=== PATIENT | female | born 1970 | race Hispanic/Latino ===

== ENCOUNTER 2019-01-22 09:17 | Emergency (ER) | payer SELFPAY ==
[2019-01-22] MEDS ORDERED: MORPHINE 4 MG/ML SYR ONE (10:07)
[2019-01-22] MEDS ORDERED: ONDANSETRON 4 MG/2 ML VIAL ONE (10:08)
[2019-01-22 10:55] LABS: Absolute Lymphocytes (CBC) 3.4 K/uL (0.7-4.9); Basophils % 1.3 % (0-1.3); Hematocrit 43.5 % (36.0-45.0); Lymphocytes % 24.7 % (15.3-44.8); MPV 9.8 fL (7.6-11.3); RBC Red Blood Cell Count 4.82 M/uL (3.86-4.86)
--- NOTE | 2019-01-22 11:22 | RAD REPORT ---
EXAM DESCRIPTION: CTAbdomen Pelvis W Contrast - 01/22/2019 11:10 am CLINICAL HISTORY: Abdominal pain. flank pain, abdominal pain COMPARISON: Abdomen Pelvis W Contrast dated 02/04/2017 TECHNIQUE: Biphasic CT imaging of the abdomen and pelvis was performed with 100 ml non-ionic IV cont rast. All CT scans are performed using dose optimization technique as appropriate and may include automated exposure control or mA/KV adjustment according to patient size. FINDINGS: The lung bases are clear. The liver demonstrates diffuse fatty infiltration. The spleen, pancreas, adrenal glands and kidneys a re within normal limits. No bowel obstruction, free air, free fluid or abscess. The appendix is normal. No evidence of signi ficant lymphadenopathy. No suspicious bony findings. 3.8 cm left ovarian cyst noted. Soft tissue is seen in the endometrial canal. IMPRESSION: No acute intra-abdominal or pelvic finding. Fatty liver. 3.8 cm left ovarian cyst. Moderate fluid and soft tissue density in the endometrial canal, similar to study. Pap smear correlat ion is advised.
[2019-01-22 11:23] LABS: Bilirubin Total 0.7 mg/dL (0.2-1.0)
[2019-01-22 11:39] LABS: Urine Blood NEGATIVE (NEG); Urine Glucose 2+ (NEG); Urine Protein NEGATIVE (NEG); Urine pH 5.5 (5.0-7.0)
[2019-01-22 11:52] LABS: Lipase 22 U/L (73-393)
[2019-01-22 11:54] LABS: Bicarbonate 23 mmol/L (21-32); Sodium Level 132 mmol/L (136-145)
[2019-01-22 12:00] LABS: Alkaline Phosphatase 121 U/L (45-117)
[2019-01-22 12:01] LABS: Glucose Level 328 mg/dL (74-106); Protein, Total 7.4 g/dL (6.4-8.2)
[2019-01-22 12:17] LABS: BUN Blood Urea Nitrogen 8 mg/dL (7-18); Bilirubin Direct < 0.1 mg/dL (0-0.2); Potassium 3.4 mmol/L (3.5-5.1)
[2019-01-22 12:18] LABS: AST/SGOT 52 U/L (15-37)
[2019-01-22 12:19] LABS: ALT/SGPT 21 U/L (12-78)
[2019-01-22 12:20] LABS: Albumin 3.2 g/dL (3.4-5.0)
[2019-01-22] MEDS ORDERED: KETOROLAC 30 MG/ML INJ ONE (12:53)
[2019-01-22] MEDS ORDERED: FENTANYL CITR 100 MCG/2 ML ONE (12:53)
[2019-01-22 12:57] LABS: Urine Bacteria >50 /HPF (<20); Urine Culture Reflex Order REFLEXED; Urine RBC <5 /HPF (NONE SEEN)
[2019-01-22 13:09] LABS: Blood Morphology Comment NOT SEEN (NOT SEEN); Platelet Estimate ADEQ
[2019-01-22] MEDS ORDERED: CEFTRIAXONE/SWI 1gm 1 GM/10 ML SYR ONE (13:22)
--- NOTE | 2019-01-22 13:47 | EDPHYS ---
Physician Documentation [facility] Noel Name: Liliane Jane Age: 48 yrs Sex: Female : 1970 Arrival Date: 01/22/2019 Time: 09:19 Bed 19 Private MD: ED Physician Bhaskar Thomas HPI: 01/22 09:42 This 48 yrs old Female presents to ER via Ambulatory with complaints of Flank jmm Pain, Abdominal Pain. 09:42 The patient complains of pain in the left flank and right flank. Onset: The jmm symptoms/episode began/occurred gradually, 1 month(s) ago. Modifying factors: The symptoms are alleviated by nothing. the symptoms are aggravated by nothing. Associated signs and symptoms: Pertinent positives: hematuria, Pertinent negatives: diarrhea, vomiting. This is a 48 year old female with a history of depression, DM, anxiety, htn that presents to the ED with complaints of bilateral flank pain worse on the left which has been ongoing for approx a 1 month. Denies fever or vomiting. . PRESS SET UP: 09:40 LMP 01/22/2019 em Historical: - Allergies: 09:40 HYDROCODONE; em - Home Meds: 09:40 metformin 500 mg Oral tab 1 tab 2 times per day [Active]; em - PMHx: 09:40 Depression; Diabetes - NIDDM; Anxiety; Hypertension; em - PSHx: 09:40 Tubal ligation; wrist surg; em - Immunization history:: Adult Immunizations up to date. - Social history:: Smoking status: Patient/guardian denies using tobacco. - Ebola Screening: : Patient negative for fever greater than or equal to 101.5 degrees Fahrenheit, and additional compatible Ebola Virus Disease symptoms Patient denies exposure to infectious person Patient denies travel to an Ebola-affected area in the 21 days before illness onset No symptoms or risks identified at this time. ROS: 09:42 Constitutional: Negative for fever, chills, and weight loss, Cardiovascular: Negative jmm for chest pain, palpitations, and edema, Respiratory: Negative for shortness of breath, cough, wheezing, and pleuritic chest pain. 09:42 Abdomen/GI: Positive for abdominal pain, nausea. 09:42 Back: Positive for flank pain. 09:42 All other systems are negative. Exam: 09:42 Constitutional: This is a well developed, well nourished patient who is awake, alert, jmm and in no acute distress. Head/Face: atraumatic. Eyes: EOMI, no conjunctival erythema appreciated ENT: Moist Mucus Membranes Neck: Trachea midline, Supple Chest/axilla: Normal chest wall appearance and motion. Cardiovascular: Regular rate and rhythm. No edema appreciated Respiratory: Normal respirations, no respiratory distress appreciated 09:42 Abdomen/GI: Inspection: abdomen appears normal, Bowel sounds: normal, Palpation: soft, mild abdominal tenderness, in the left upper quadrant and left lower quadrant. 09:42 Back: ROM is normal. 09:42 Musculoskeletal/extremity: ROM: intact in all extremities. 09:42 Skin: Appearance: Color: normal in color. 09:42 Neuro: Orientation: is normal, Mentation: is normal, Memory: is normal. 09:42 Psych: Behavior/mood is pleasant, cooperative. Vital Signs: 09:40 BP 170 / 101; Pulse 81; Resp 16; Temp 98.1(O); Pulse Ox 99% on R/A; Weight 77.11 kg; em Height 5 ft. 4 in. (162.56 cm); Pain 10/10; 10:39 BP 160 / 96; Pulse 75; Resp 18; Pulse Ox 99% on R/A; Pain 0/10; em 11:45 BP 133 / 69; Pulse 78; Resp 18; Pulse Ox 97% on R/A; Pain 0/10; em 13:26 BP 140 / 78; Pulse 79; Resp 16; Pulse Ox 100% on R/A; em 13:39 BP 160 / 86; Pulse 81; Resp 16; Pulse Ox 97% on R/A; Pain 8/10; em 09:40 Body Mass Index 29.18 (77.11 kg, 162.56 cm) em MDM: 10:25 Patient medically screened. [facility] 13:44 Data reviewed: vital signs, nurses notes. Counseling: I had a detailed discussion with igor the patient and/or guardian regarding: the historical points, exam findings, and any diagnostic results supporting the discharge/admit diagnosis, radiology results, the need for outpatient follow up, to return to the emergency department if symptoms worsen or persist or if there are any questions or concerns that arise at home. Response to treatment: the patient's symptoms have markedly improved after treatment. ED course: Patient is alert and non toxic in appearance in the ED. I discussed CT findings with the patient along with the need to follow up with GUN [employer]ER for further evaluation. patient was otherwise given strict return precautions. Patient understood and agrees with the plan of care. . 01/22 09:43 Order name: Basic Metabolic Panel; Complete Time: 12:36 [facility] 01/22 09:43 Order name: CBC with Diff; Complete Time: 13:12 [facility] 01/22 09:43 Order name: Creatinine for Radiology; Complete Time: 11:06 [facility] 01/22 09:43 Order name: Hepatic Function; Complete Time: 12:36 [facility] 01/22 09:43 Order name: Lipase; Complete Time: 12:36 [facility] 01/22 11:08 Order name: Urine Microscopic Only; Complete Time: 13:12 em 01/22 10:25 Order name: CT Abd/Pelvis - IV Contrast Only; Complete Time: 11:27 [facility] 01/22 11:08 Order name: Urine Culture em 01/22 11:08 Order name: Urine Dipstick--Ancillary (enter results); Complete Time: 12:21 ms 01/22 11:08 Order name: Urine --Ancillary (enter results); Complete Time: 12:21 pa 01/22 13:10 Order name: Manual Differential; Complete Time: 13:12 [facility] 01/22 09:43 Order name: IV Saline Lock; Complete Time: 10:08 [facility] 01/22 09:43 Order name: Labs collected and sent; Complete Time: 10:08 [facility] 01/22 09:43 Order name: Urine Dipstick-Ancillary (obtain specimen); Complete Time: 11:02 [facility] Administered Medications: 10:15 Drug: Zofran 4 mg Route: IVP; Site: left forearm; iw 10:39 Follow up: Response: No adverse reaction em 10:17 Drug: morphine 4 mg Route: IVP; Site: left forearm; iw 10:39 Follow up: Response: No adverse reaction; Pain is decreased em 12:58 Drug: Ketorolac 15 mg Route: IVP; Site: left forearm; iw 13:40 Follow up: Response: No adverse reaction; Pain is decreased em 13:00 Drug: fentaNYL (PF) 25 mcg Route: IVP; Site: left forearm; iw 13:40 Follow up: Response: No adverse reaction; Pain is decreased em 13:38 Drug: Rocephin 1 grams Route: IV; Rate: calculated rate; Site: left forearm; iw 14:06 Follow up: Response: No adverse reaction; IV Status: Completed infusion; IV Intake: 10mlem Disposition: 16:40 Co-signature as Attending Physician, Bhaskar Thomas MD I agree with the assessment and kdr plan of care. Disposition: 01/22/19 13:47 Discharged to Home. Impression: Low back pain, Flank Pain, Abdominal Pain. - Condition is Stable. - Discharge Instructions: Back Pain, Adult, Musculoskeletal Pain, Ovarian Cyst, Pelvic Pain, Female. - Prescriptions for Keflex 500 mg Oral Capsule - take 1 capsule by ORAL route every 12 hours for 10 days; 20 capsule. Ultracet 37.5- 325 mg Oral Tablet - take 1 tablet by ORAL route every 6 hours - for up to 5 days; do not exceed 8 tablets per day.; 20 tablet. - Medication Reconciliation Form, Thank You Letter, Antibiotic Education, Prescription Opioid Use form. - Follow up: Private Physician; When: 2 - 3 days; Reason: Recheck today's complaints, Continuance of care, Re-evaluation by your physician. Signatures: Dispatcher [employer] EDBhaskar Ayala MD MD [facility] Joao Medina PA PA kusum Toro Moura, ROVING CHANGER ROVING CHANGER em Missy Quintanilla, JUAN MIGUEL RN iw Corrections: (The following items were deleted from the chart) 14:07 13:47 01/22/2019 13:47 Discharged to Home. Impression: Low back pain; Flank Pain; em Abdominal Pain. Condition is Stable. Forms are Medication Reconciliation Form, Thank You Letter, Antibiotic Education, Prescription Opioid Use. Follow up: Private Physician; When: 2 - 3 days; Reason: Recheck today's complaints, Continuance of care, Re-evaluation by your physician. tiffanie
--- NOTE | 2019-01-22 13:47 | ER ---
Nurse's Notes [facility] Kristina Name: Liliane Jane Age: 48 yrs Sex: Female : 1970 Arrival Date: 01/22/2019 Time: 09:19 Bed 19 Private MD: Diagnosis: Low back pain;Flank Pain;Abdominal Pain Presentation: 01/22 09:37 Presenting complaint: Patient states: left sided flank pain that radiates to the back em for 1 week, reports nausea, denies dysuria or fever. Transition of care: patient was not received from another setting of care. Onset of symptoms was January 15, 2019. Risk Assessment: Do you want to hurt yourself or someone else? Patient reports no desire to harm self or others. Initial Sepsis Screen: Does the patient meet any 2 criteria? No. Patient's initial sepsis screen is negative. Does the patient have a suspected source of infection? No. Patient's initial sepsis screen is negative. Care prior to arrival: None. 09:37 Method Of Arrival: Ambulatory em 09:44 Acuity: KENNEDY 3 iw CORRESPONDENCE ANALYST: 09:40 LMP 01/22/2019 em Historical: - Allergies: 09:40 HYDROCODONE; em - Home Meds: 09:40 metformin 500 mg Oral tab 1 tab 2 times per day [Active]; em - PMHx: 09:40 Depression; Diabetes - NIDDM; Anxiety; Hypertension; em - PSHx: 09:40 Tubal ligation; wrist surg; em - Immunization history:: Adult Immunizations up to date. - Social history:: Smoking status: Patient/guardian denies using tobacco. - Ebola Screening: : Patient negative for fever greater than or equal to 101.5 degrees Fahrenheit, and additional compatible Ebola Virus Disease symptoms Patient denies exposure to infectious person Patient denies travel to an Ebola-affected area in the 21 days before illness onset No symptoms or risks identified at this time. Screenin:38 Abuse screen: Denies threats or abuse. Nutritional screening: No deficits noted. em Tuberculosis screening: No symptoms or risk factors identified. Fall Risk None identified. Assessment: 09:40 General: Appears in no apparent distress. uncomfortable, well groomed, well developed, em well nourished, Behavior is cooperative, anxious, crying, Denies fever. Pain: Complains of pain in anterior aspect of left lateral abdomen Pain currently is 10 out of 10 on a pain scale. Pain began 1 week. Neuro: Level of Consciousness is awake, alert, obeys commands, Oriented to person, place, time, situation, Appropriate for age. Cardiovascular: Capillary refill < 3 seconds Patient's skin is warm and dry. Respiratory: Airway is patent Respiratory effort is even, unlabored, Respiratory pattern is regular, symmetrical. GI: Abdomen is flat, Bowel sounds present X 4 quads. Abd is soft X 4 quads Abdomen is tender to palpation in right lower quadrant and left lower quadrant Patient currently denies nausea, vomiting. : Denies burning with urination, discharge. Derm: Skin is intact, is healthy with good turgor, Skin is pink, warm \T\ dry. Musculoskeletal: Capillary refill < 3 seconds, Range of motion: intact in all extremities. 10:31 Reassessment: Patient appears in no apparent distress at this time. Patient and/or em family updated on plan of care and expected duration. Pain level reassessed. Patient is alert, oriented x 3, equal unlabored respirations, skin warm/dry/pink. Patient denies pain at this time. Patient states feeling better. Patient states symptoms have improved. 11:45 Reassessment: Patient appears in no apparent distress at this time. Patient and/or em family updated on plan of care and expected duration. Pain level reassessed. Patient is alert, oriented x 3, equal unlabored respirations, skin warm/dry/pink. Patient denies pain at this time. Patient states feeling better. Patient states symptoms have improved. 13:26 Reassessment: Patient appears in no apparent distress at this time. Patient and/or em family updated on plan of care and expected duration. Pain level reassessed. Patient is alert, oriented x 3, equal unlabored respirations, skin warm/dry/pink. Patient states feeling better. Patient states symptoms have improved. Vital Signs: 09:40 BP 170 / 101; Pulse 81; Resp 16; Temp 98.1(O); Pulse Ox 99% on R/A; Weight 77.11 kg; em Height 5 ft. 4 in. (162.56 cm); Pain 10/10; 10:39 BP 160 / 96; Pulse 75; Resp 18; Pulse Ox 99% on R/A; Pain 0/10; em 11:45 BP 133 / 69; Pulse 78; Resp 18; Pulse Ox 97% on R/A; Pain 0/10; em 13:26 BP 140 / 78; Pulse 79; Resp 16; Pulse Ox 100% on R/A; em 13:39 BP 160 / 86; Pulse 81; Resp 16; Pulse Ox 97% on R/A; Pain 8/10; em 09:40 Body Mass Index 29.18 (77.11 kg, 162.56 cm) em ED Course: 09:19 Patient arrived in ED. mr 09:31 Toro Moura LVN is Primary Nurse. em 09:38 Patient has correct armband on for positive identification. Bed in low position. Call em light in reach. Adult w/ patient. Pulse ox on. NIBP on. 09:40 Arm band placed on. em 09:43 Joao Medina PA is PHCP. jmm 09:43 Bhaskar Thomas MD is Attending Physician. jmm 09:44 Triage completed. iw 09:55 Initial lab(s) drawn, by me, sent to lab. Inserted saline lock: 22 gauge in left em forearm, using aseptic technique. Blood collected. 11:03 Urine collected: clean catch specimen, clear. em 11:10 CT completed. Patient tolerated procedure well. Patient moved back from CT. mw3 11:10 CT Abd/Pelvis - IV Contrast Only In Process Unspecified. EDMS 14:06 No provider procedures requiring assistance completed. IV discontinued, intact, em bleeding controlled, No redness/swelling at site. Pressure dressing applied. Administered Medications: 10:15 Drug: Zofran 4 mg Route: IVP; Site: left forearm; iw 10:39 Follow up: Response: No adverse reaction em 10:17 Drug: morphine 4 mg Route: IVP; Site: left forearm; iw 10:39 Follow up: Response: No adverse reaction; Pain is decreased em 12:58 Drug: Ketorolac 15 mg Route: IVP; Site: left forearm; iw 13:40 Follow up: Response: No adverse reaction; Pain is decreased em 13:00 Drug: fentaNYL (PF) 25 mcg Route: IVP; Site: left forearm; iw 13:40 Follow up: Response: No adverse reaction; Pain is decreased em 13:38 Drug: Rocephin 1 grams Route: IV; Rate: calculated rate; Site: left forearm; iw 14:06 Follow up: Response: No adverse reaction; IV Status: Completed infusion; IV Intake: 10mlem Intake: 14:06 IV: 10ml; Total: 10ml. em Outcome: 13:47 Discharge ordered by . tiffanie 14:06 Discharged to home ambulatory, with family. em 14:06 Condition: good 14:06 Discharge instructions given to patient, family, Instructed on discharge instructions, follow up and referral plans. medication usage, Demonstrated understanding of instructions, follow-up care, medications, Prescriptions given X 2. 14:07 Patient left the ED. em Addendum: 01/25/2019 08:52 Addendum: Culture Results: Positive urine culture. No further action required. Bacteria i w sensitive to prescribed antibiotic. Signatures: Dispatcher [employer] Joao Mitchell PA PA jmm Rivera, Mary mr MunozToro, AWNINGS MECHANIC AWNINGS MECHANIC Missy Hernandez, RN RN Diane Curran mw3
[2019-01-22 14:40] VITALS: TEMP 98.1
[2019-01-22 15:04] VITALS: BP 133/69; O2SAT 97
== END 2019-01-22 14:07 | disposition home or self-care (01) ==
LOC: ER 09:17
DX: R10.9 Unspecified abdominal pain (principal); I10 Essential (primary) hypertension; E11.9 Type 2 diabetes mellitus without complications; Z88.5 Allergy status to narcotic agent
CPT/HCPCS: 36415; 74177; 80048; 80076; 81003; 81015; 81025; 83690; 85025; 87077; 87086; 87088; 87186; 96365; 96375; 99284; J0696; J2405; J3010; Q9967

== ENCOUNTER 2019-01-26 12:13 | Emergency (ER) | payer SELFPAY ==
[2019-01-26 12:53] LABS: Urine Blood 2+ (NEG); Urine Glucose 3+ (NEG); Urine Protein NEGATIVE (NEG); Urine pH 5.5 (5.0-7.0)
[2019-01-26] MEDS ORDERED: MORPHINE 4 MG/ML SYR ONE (13:13)
[2019-01-26] MEDS ORDERED: ONDANSETRON 4 MG/2 ML VIAL ONE (13:14)
[2019-01-26] MEDS ORDERED: NA CHLORIDE 0.9% 1,000 ML ONE (13:14)
[2019-01-26 13:39] LABS: Absolute Lymphocytes (CBC) 2.8 K/uL (0.7-4.9); Hematocrit 45.9 % (36.0-45.0); Lymphocytes % 24.8 % (15.3-44.8); MPV 9.5 fL (7.6-11.3); RBC Red Blood Cell Count 5.14 M/uL (3.86-4.86)
--- NOTE | 2019-01-26 13:41 | RAD REPORT ---
EXAM DESCRIPTION: CT - Abdomen Pelvis W Contrast - 01/26/2019 1:28 pm CLINICAL HISTORY: Abdominal pain COMPARISON: none. TECHNIQUE: Computed axial tomography of the abdomen pelvis was obtained. 100 cc Isovue-300 was admin istered intravenously. Oral contrast was not requested which limits evaluation of bowel. All CT scans are performed using dose optimization technique as appropriate and may include automated exposure control or mA/KV adjustment according to patient size. FINDINGS: Fatty liver Spleen, pancreas, adrenal and kidneys appear unremarkable. There is no evidence of diverticulitis. Normal appendix Small umbilical hernia 4.3 centimeter left ovarian cyst mildly enlarged from the prior exam. No significant free fluid Endometrial stripe remains prominent. Moderate amount of stool is present throughout the colon IMPRESSION: 4.3 centimeter left ovarian cyst mildly enlarged from the prior exam. No significant marcie e fluid. Prominence of the endometrial stripe. This can be seen with endometrial hyperplasia, polyp or neoplas m .
[2019-01-26 14:06] LABS: Blood Morphology Comment NOT SEEN (NOT SEEN); Platelet Estimate ADEQ; Urine White Blood Cell Casts OK
[2019-01-26 15:17] LABS: Albumin 3.1 g/dL (3.4-5.0); Alkaline Phosphatase 104 U/L (45-117); BUN Blood Urea Nitrogen 15 mg/dL (7-18); Bicarbonate 18 mmol/L (21-32); Bilirubin Total 0.6 mg/dL (0.2-1.0); Glucose Level 247 mg/dL (74-106); Lipase 78 U/L (73-393); Protein, Total 6.8 g/dL (6.4-8.2)
[2019-01-26 15:18] LABS: Sodium Level 131 mmol/L (136-145)
[2019-01-26 15:20] LABS: ALT/SGPT 26 U/L (12-78); AST/SGOT 19 U/L (15-37); Bilirubin Direct < 0.1 mg/dL (0-0.2)
[2019-01-26] MEDS ORDERED: HYDROCODONE/APAP 7.5/325 MG TAB ONE (15:26)
[2019-01-26] MEDS ORDERED: CODEINE 30MG/APAP 300MG TAB ONE (15:35)
--- NOTE | 2019-01-26 17:10 | RAD REPORT ---
EXAM DESCRIPTION: US - Transvaginal Study Probe - 01/26/2019 4:59 pm CLINICAL HISTORY: r/o torsion Pelvic pain. COMPARISON: Abdomen Pelvis W Contrast dated 01/26/2019 FINDINGS: The uterus is normal in size, shape and echotexture. The uterus measures 11.6 x 7.8 x 6.1 cm. The endometrial stripe measures 21 mm, thickened with irregular shaped cystic structure in the fundal region. The left ovary measures 4.3 x 5.0 x 5.3 cm. The left ovary demonstrates normal blood flow. 3.7 cm lef t ovarian cyst is present. The right ovary was not visualized with confidence due to bowel gas. No significant pelvic ascites. IMPRESSION: No evidence of left ovarian torsion.3.7 cm left ovarian cyst present, benign in appearan ce. The endometrial stripe is thickened with irregularly-shaped cystic collection in the fundal region. S uggest correlation with test.
--- NOTE | 2019-01-26 17:25 | EDPHYS ---
Physician Documentation [facility] Name: Liliane Jane Age: 48 yrs Sex: Female : 1970 Arrival Date: 01/26/2019 Time: 12:15 Bed 16 Private MD: ED Physician Bhaskar Thomas HPI: 01/26 16:15 This 48 yrs old Female presents to ER via Ambulatory with complaints of kdr Abdominal Pain. 16:15 The patient presents with abdominal pain in the left lower quadrant. Onset: The kdr symptoms/episode began/occurred gradually, 2 week(s) ago. The symptoms do not radiate. Associated signs and symptoms: none. Pertinent positives: nausea. The symptoms are described as achy, crampy, dull, vague. Modifying factors: The symptoms are alleviated by nothing, the symptoms are aggravated by touching the area. Severity of pain: At its worst the pain was mild moderate just prior to arrival, in the emergency department the pain is unchanged. The patient has experienced similar episodes in the past, multiple times. The patient has been recently seen at the [facility] Emergency Department, last week. 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 - Social history:: Smoking status: Patient/guardian denies using tobacco. - Ebola Screening: : No symptoms or risks identified at this time. ROS: 16:15 Constitutional: Negative for fever, chills, and weight loss, Eyes: Negative for injury, kdr pain, redness, and discharge, ENT: Negative for injury, pain, and discharge, Neck: Negative for injury, pain, and swelling, Cardiovascular: Negative for chest pain, palpitations, and edema, Respiratory: Negative for shortness of breath, cough, wheezing, and pleuritic chest pain, Back: Negative for injury and pain, : Negative for injury, bleeding, discharge, and swelling, MS/Extremity: Negative for injury and deformity, Skin: Negative for injury, rash, and discoloration, Neuro: Negative for headache, weakness, numbness, tingling, and seizure activity. Psych: Negative for depression, anxiety, suicide ideation, homicidal ideation, and hallucinations, Allergy/Immunology: Negative for hives, rash, and allergies, Endocrine: Negative for neck swelling, polydipsia, polyuria, polyphagia, and marked weight changes, Hematologic/Lymphatic: Negative for swollen nodes, abnormal bleeding, and unusual bruising. 16:15 Abdomen/GI: Positive for abdominal pain, nausea, Negative for diarrhea, constipation, abdominal cramps, abdominal distension, anorexia, dysphagia, hematemesis, black/tarry stool, rectal pain, rectal bleeding, bowel incontinence. Exam: 16:15 Constitutional: This is a well developed, well nourished patient who is awake, alert, kdr and in no acute distress. Head/Face: Normocephalic, atraumatic. Eyes: Pupils equal round and reactive to light, extra-ocular motions intact. Lids and lashes normal. Conjunctiva and sclera are non-icteric and not injected. Cornea within normal limits. Periorbital areas with no swelling, redness, or edema. Neck: Trachea midline, no thyromegaly or masses palpated, and no cervical lymphadenopathy. Supple, full range of motion without nuchal rigidity, or vertebral point tenderness. No Meningismus. Chest/axilla: Normal chest wall appearance and motion. Nontender with no deformity. No lesions are appreciated. Cardiovascular: Regular rate and rhythm with a normal S1 and S2. No gallops, murmurs, or rubs. Normal PMI, no JVD. No pulse deficits. Respiratory: Lungs have equal breath sounds bilaterally, clear to auscultation and percussion. No rales, rhonchi or wheezes noted. No increased work of breathing, no retractions or nasal flaring. Back: No spinal tenderness. No costovertebral tenderness. Full range of motion. Skin: Warm, dry with normal turgor. Normal color with no rashes, no lesions, and no evidence of cellulitis. MS/ Extremity: Pulses equal, no cyanosis. Neurovascular intact. Full, normal range of motion. Neuro: Awake and alert, GCS 15, oriented to person, place, time, and situation. Cranial nerves II-XII grossly intact. Motor strength 5/5 in all extremities. Sensory grossly intact. Cerebellar exam normal. Normal gait. Psych: Awake, alert, with orientation to person, place and time. Behavior, mood, and affect are within normal limits. 16:15 Abdomen/GI: Inspection: obese Bowel sounds: active, diminished, in all quadrants, Palpation: soft. Vital Signs: 12:22 BP 155 / 112; Pulse 89; Resp 16; Temp 97.7(O); Pulse Ox 98% on R/A; Weight 79.38 kg; la1 Height 5 ft. 5 in. (165.10 cm); 12:57 BP 168 / 93; Pulse 88; Resp 16; Temp 97.8(O); Pulse Ox 96% on R/A; mh5 13:48 BP 145 / 114; Pulse 84; Resp 16; Pulse Ox 95% on R/A; ae4 14:23 BP 146 / 85; Pulse 80; Resp 18; Temp 97.8(O); Pulse Ox 98% ; mh5 15:38 BP 148 / 65; Pulse 80; Resp 18; Temp 98.0(O); Pulse Ox 97% on R/A; mh5 17:07 BP 136 / 84; Pulse 87; Resp 17; Temp 98.2(O); Pulse Ox 97% on R/A; mh5 18:30 BP 149 / 81; Pulse 86; Resp 16; Pulse Ox 97% on R/A; ae4 12:22 Body Mass Index 29.12 (79.38 kg, 165.10 cm) la1 MDM: 16:15 Data reviewed: vital signs, nurses notes, lab test result(s), radiologic studies. kdr Counseling: I had a detailed discussion with the patient and/or guardian regarding: the historical points, exam findings, and any diagnostic results supporting the discharge/admit diagnosis, lab results, radiology results. 17:24 Patient medically screened. kdr 01/26 12:35 Order name: Urine Dipstick--Ancillary (enter results); Complete Time: 13:58 bd 01/26 12:35 Order name: Urine --Ancillary (enter results); Complete Time: 13:58 bd 01/26 13:03 Order name: Basic Metabolic Panel; Complete Time: 17:15 kdr 01/26 13:03 Order name: CBC with Diff; Complete Time: 14:25 kdr 01/26 13:03 Order name: Creatinine for Radiology; Complete Time: 15:20 kdr 01/26 13:03 Order name: Hepatic Function; Complete Time: 17:15 [facility] 01/26 13:03 Order name: Lipase; Complete Time: 17:15 [facility] 01/26 13:03 Order name: CT Abd/Pelvis - IV Contrast Only; Complete Time: 13:58 kdr 01/26 14:06 Order name: CBC Smear Scan; Complete Time: 14:25 EDMS 01/26 16:20 Order name: US Transvaginal Study (Probe); Complete Time: 17:15 bd 01/26 13:03 Order name: IV Saline Lock; Complete Time: 13:23 kdr 01/26 13:03 Order name: Labs collected and sent; Complete Time: 13:23 [facility] 01/26 13:58 Order name: Labs - recollect needed; Complete Time: 14:32 bd Administered Medications: 13:20 Drug: NS 0.9% 1000 ml Route: IV; Rate: 1 bolus; Site: right forearm; ae4 18:32 Follow up: IV Status: Completed infusion ae4 13:20 Drug: Zofran 4 mg Route: IVP; Site: right forearm; ae4 13:47 Follow up: Response: No adverse reaction; No nausea with painmmedication administration.ae4 13:24 Drug: morphine 4 mg Route: IVP; Site: right forearm; ae4 13:48 Follow up: Response: No adverse reaction; Pain is decreased; RASS: Alert and Calm (0) ae4 15:45 Drug: Tylenol-Codeine #3 (300 mg - 30 mg) 2 tabs Route: PO; ae4 18:31 Follow up: Response: Pain is decreased; RASS: Alert and Calm (0) ae4 Disposition: 01/26/19 17:24 Discharged to Home. Impression: Abdominal and pelvic pain, Other ovarian cysts, Unspecified ovarian cysts. - Condition is Stable. - Discharge Instructions: Abdominal Pain, Adult, [id number], Ovarian Cyst, [id number]. - Prescriptions for Tylenol- Codeine #3 300-30 mg Oral Tablet - take 2 tablets by ORAL route every 6 hours As needed; 15 tablet. - Medication Reconciliation Form, Thank You Letter, Prescription Opioid Use form. - Follow up: Private Physician; When: 2 - 3 days; Reason: If symptoms return, Further diagnostic work-up, Recheck today's complaints, Continuance of care, Re-evaluation by your physician. - Problem is an ongoing problem. - Symptoms have improved. Signatures: Dispatcher [employer] [facility] Karol Salvador Kevin, MD MD kdr Jose Juan Levy RN RN la1 Manuel Calzada, RN RN ae4 Corrections: (The following items were deleted from the chart) 16:22 16:15 Abdomen Limited+US.RAD.BRZ ordered. [facility] 18:32 17:24 01/26/2019 17:24 Discharged to Home. Impression: Abdominal and pelvic pain; Other ae4 ovarian cysts; Unspecified ovarian cysts. Condition is Stable. Forms are Medication Reconciliation Form, Thank You Letter, Antibiotic Education, Prescription Opioid Use. Follow up: Private Physician; When: 2 - 3 days; Reason: If symptoms return, Further diagnostic work-up, Recheck today's complaints, Continuance of care, Re-evaluation by your physician. Problem is an ongoing problem. Symptoms have improved. kdr
--- NOTE | 2019-01-26 17:25 | ER ---
Nurse's Notes [facility] Name: Liliane Jane Age: 48 yrs Sex: Female : 1970 Arrival Date: 01/26/2019 Time: 12:15 Bed 16 Private MD: Diagnosis: Abdominal and pelvic pain;Other ovarian cysts;Unspecified ovarian cysts Presentation: 01/26 12:20 Presenting complaint: Patient states: I am having left sided abd pain for the last 2 la1 weeks. I came here a while back and they told me I have a UTI and put me on keflex but I feel like I am getting worse, have not been able to sleep either. Transition of care: patient was not received from another setting of care. Onset of symptoms was January 26, 2019. Risk Assessment: Do you want to hurt yourself or someone else? Patient reports no desire to harm self or others. Initial Sepsis Screen: Does the patient meet any 2 criteria? No. Patient's initial sepsis screen is negative. Does the patient have a suspected source of infection? No. Patient's initial sepsis screen is negative. Care prior to arrival: None. 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 - Social history:: Smoking status: Patient/guardian denies using tobacco. - Ebola Screening: : No symptoms or risks identified at this time. Screenin:43 Abuse screen: Denies threats or abuse. Nutritional screening: No deficits noted. ae4 Tuberculosis screening: No symptoms or risk factors identified. Fall Risk None identified. Assessment: 12:39 Reassessment: Patient states she has been out of her medications for 1 month. General: ae4 Appears uncomfortable, Behavior is cooperative, anxious. Pain: Complains of pain in left lower quadrant. Neuro: Level of Consciousness is awake, alert, obeys commands, Oriented to person, place, time, situation, Appropriate for age. Cardiovascular: Patient's skin is warm and dry. Respiratory: Airway is patent Respiratory effort is even, unlabored, Respiratory pattern is regular, symmetrical. GI: Bowel sounds present X 4 quads. Abd is soft. : Reports burning with urination, Patient states she was diagnosed with a UTI. EENT: No signs and/or symptoms were reported regarding the EENT system. Oral mucosa is dry. Poor dentition noted. Derm: Skin is normal. Musculoskeletal: No signs and/or symptoms reported regarding the musculoskeletal system. 13:30 Reassessment: Patient and/or family updated on plan of care and expected duration. Pain ae4 level reassessed. 15:00 Reassessment: Patient and/or family updated on plan of care and expected duration. Pain ae4 level reassessed. 15:20 Reassessment: Patient reports increased pain to lower left quadrant, provider notified, ae4 new orders received. 15:45 Reassessment: Administered tylenol #3, 2 tabs PO. ae4 18:30 Reassessment: Patient appears in no apparent distress at this time. Patient and/or ae4 family updated on plan of care and expected duration. Pain level reassessed. Patient states feeling better. Patient states symptoms have improved. Vital Signs: 12:22 BP 155 / 112; Pulse 89; Resp 16; Temp 97.7(O); Pulse Ox 98% on R/A; Weight 79.38 kg; la1 Height 5 ft. 5 in. (165.10 cm); 12:57 BP 168 / 93; Pulse 88; Resp 16; Temp 97.8(O); Pulse Ox 96% on R/A; mh5 13:48 BP 145 / 114; Pulse 84; Resp 16; Pulse Ox 95% on R/A; ae4 14:23 BP 146 / 85; Pulse 80; Resp 18; Temp 97.8(O); Pulse Ox 98% ; mh5 15:38 BP 148 / 65; Pulse 80; Resp 18; Temp 98.0(O); Pulse Ox 97% on R/A; mh5 17:07 BP 136 / 84; Pulse 87; Resp 17; Temp 98.2(O); Pulse Ox 97% on R/A; mh5 18:30 BP 149 / 81; Pulse 86; Resp 16; Pulse Ox 97% on R/A; ae4 12:22 Body Mass Index 29.12 (79.38 kg, 165.10 cm) la1 ED Course: 12:15 Patient arrived in ED. mr 12:17 Bhaskar Thomas MD is Attending Physician. kdr 12:20 Arm band placed on left wrist. la1 12:21 Triage completed. la1 12:26 Manuel Calzada, JUAN MIGUEL is Primary Nurse. ae4 12:43 Bed in low position. Call light in reach. Side rails up X 1. Pulse ox on. NIBP on. Warm ae4 blanket given. 13:15 Inserted saline lock: 22 gauge in right forearm, using aseptic technique. Blood ae4 collected. 13:[address] via wheelchair. ae4 13:28 CT Abd/Pelvis - IV Contrast Only In Process Unspecified. EDMS 16:59 US Transvaginal Study (Probe) In Process Unspecified. EDMS 18:31 No provider procedures requiring assistance completed. IV discontinued, intact, ae4 bleeding controlled, No redness/swelling at site. Pressure dressing applied. Administered Medications: 13:20 Drug: NS 0.9% 1000 ml Route: IV; Rate: 1 bolus; Site: right forearm; ae4 18:32 Follow up: IV Status: Completed infusion ae4 13:20 Drug: Zofran 4 mg Route: IVP; Site: right forearm; ae4 13:47 Follow up: Response: No adverse reaction; No nausea with painmmedication administration.ae4 13:24 Drug: morphine 4 mg Route: IVP; Site: right forearm; ae4 13:48 Follow up: Response: No adverse reaction; Pain is decreased; RASS: Alert and Calm (0) ae4 15:45 Drug: Tylenol-Codeine #3 (300 mg - 30 mg) 2 tabs Route: PO; ae4 18:31 Follow up: Response: Pain is decreased; RASS: Alert and Calm (0) ae4 Intake: Outcome: 17:24 Discharge ordered by . kdr 18:31 Discharged to home ambulatory, with significant other. ae4 18:31 Condition: stable 18:31 Discharge instructions given to patient, Instructed on discharge instructions, follow up and referral plans. Demonstrated understanding of instructions, Prescriptions given X 1. 18:32 Patient left the ED. ae4 Signatures: Dispatcher [employer] EDMS Bhaskar Thomas MD MD kdr Rivera, Mary mr MildredJose Juan RN RN sdMartina Redman 5 Manuel Calzada RN RN ae4 Corrections: (The following items were deleted from the chart) 13:02 12:57 Pulse 88bpm; Resp 16bpm; Pulse Ox 96% RA; Temp 97.8F Oral; mh5 mh5
[2019-01-26 18:51] VITALS: O2SAT 97
[2019-01-26 18:52] VITALS: TEMP 98.2
[2019-01-26 18:53] VITALS: BP 149/81
== END 2019-01-26 18:32 | disposition home or self-care (01) ==
LOC: ER 12:13
DX: N83.299 Other ovarian cyst, unspecified side (principal); I10 Essential (primary) hypertension; E11.9 Type 2 diabetes mellitus without complications; F41.9 Anxiety disorder, unspecified; F32.9 Major depressive disorder, single episode, unspecified; Z88.5 Allergy status to narcotic agent
CPT/HCPCS: 36415; 74177; 76830; 80048; 80076; 81003; 81025; 83690; 85025; 96361; 96374; 96375; 99284; J2405; J7030; Q9967

== ENCOUNTER 2021-07-02 09:51 | Emergency (ER) | payer OTHER ==
--- OUTSIDE RECORDS SUMMARY | 2021-07-02 09:53 | XMS REPORT | Continuity of Care Document ---
:1970 Author Organization [facility] t Address [address] [place] [address] Care Team Providers Name Role Phone ALEX MILLER Attending Clinician Unavailable ANGELA Attending Clinician Unavailable DOLORES Attending Clinician Unavailable ALEX MILLER Admitting Clinician Unavailable Payers Payer Name Policy Type Policy Number Effective Date Expiration Date S donte [facility] [id number] 2021 00:00:00 [facility] [id number] [facility] Problems This patient has no known problems. Allergies, Adverse Reactions, Alerts Allergy Allergy Status Severity Reaction(s) Onset Inactive Treating Comm ents Source Name Type Date Date Clinician HYDROCOD Allergy Active High Sob 2020-03 [facility] 04-18 [facility]es [facility] NO KNOWN Allergy Active [facility] Medications This patient has no known medications. Vital Signs Vital Name Observation Time Observation Value Comments Source HEIGHT 2021-02-18 06:06:00 165.1 cm WEIGHT 2021-02-18 06:06:00 77.2 kg HEIGHT 2021-02-15 12:01:00 165.1 cm WEIGHT 2021-02-15 12:01:00 78.019 kg HEIGHT 2021-02-18 06:06:00 165.1 cm WEIGHT 2021-02-18 06:06:00 77.2 kg HEIGHT 2021-02-15 12:01:00 165.1 cm WEIGHT 2021-02-15 12:01:00 78.019 kg Procedures This patient has no known procedures. Encounters Start End Encounter Admission Attending Care Care Encounter Source Date/Time Date/Time Type Type Clinicians Facility Department ID 2021-07-08 2021-07-08 Outpatient EL ANGELA, [facility] [id number] SLE 00:00:00 00:00:00 DAVID 2021-07-08 2021-07-08 Outpatient EL ANGELA, [facility] [id number] SLE 00:00:00 00:00:00 DAVID 2021-07-01 2021-07-01 Outpatient EL ANGELA, [facility] [id number] SLE 00:00:00 00:00:00 DAVID 2021-07-01 2021-07-01 Outpatient EL ANGELA, [facility] [id number] SLE 00:00:00 00:00:00 DAVID 2021-06-20 2021-06-20 Outpatient [facility] [id number] [facility] 08:24:50 23:59:00 [facility] 2021-06-18 2021-06-18 Outpatient ANGELA, [facility] [id number] [facility] 11:00:34 14:21:21 DAVID [facility] 2021-05-30 2021-05-30 Outpatient [facility] [id number] [facility] 09:07:43 23:59:00 [facility] 2021-05-29 2021-05-29 Outpatient ANGELA, [facility] [id number] [facility] 13:51:16 15:39:35 DAVID [facility] 2021-05-09 2021-05-09 Outpatient [facility] [id number] [facility] 08:48:39 23:59:00 [facility] 2021-05-08 2021-05-08 Outpatient ANGELA, [facility] [id number] [facility] 13:12:01 16:06:08 DAVID [facility] 2021-04-18 2021-04-18 Outpatient [facility] [id number] [facility] 07:52:11 23:59:00 [facility] 2021-04-17 2021-04-17 Outpatient ANGELA, [facility] [id number] [facility] 14:29:00 15:56:45 DAVID [facility] 2021-04-15 2021-04-15 [facility] [id number] [facility] 08:29:26 08:29:26 2021-04-08 2021-04-08 Outpatient EL SLE [facility] [id number] [facility] 00:00:00 00:00:00 2021-03-05 2021-03-05 Outpatient ANGELA [facility] [id number] [facility] 09:39:00 09:39:00 DAVID [facility] 2021-02-18 2021-02-18 Outpatient [facility] [id number] [facility] 00:00:00 23:59:00 [facility] 2021-02-18 2021-02-18 Outpatient EL ANGELA, [facility] Surgery [id number] SLE 05:21:00 13:45:00 DAVID 2021-02-15 2021-02-15 [facility] [id number] [facility] 12:13:29 23:59:00 2021-02-01 2021-02-01 Outpatient EL DOLORES, [facility] [id number] [facility] 11:21:20 23:59:00 KALYAN 2021-01-30 2021-01-30 Outpatient EL SLE SLE [id number] [facility] 06:47:20 06:47:20 2021-01-29 2021-01-29 Outpatient [facility] [id number] [facility] 10:34:03 23:59:00 [facility] 2021-01-29 2021-01-29 Outpatient ANGELA, [facility] [place] [id number] [facility] 10:32:19 14:20:54 DAVID [facility] 2021-01-22 2021-01-22 Outpatient [facility] [id number] [facility] 09:12:13 23:59:00 [facility] 2021-01-22 2021-01-22 Outpatient ANGELA, [facility] [id number] [facility] 09:08:09 14:04:05 DAVID [facility] 2021-01-21 2021-01-21 Outpatient EL [facility] [id number] SLE 12:33:45 12:33:45 2021-01-15 2021-01-15 Outpatient [facility] [id number] [facility] 09:53:32 23:59:00 [facility] 2021-01-15 2021-01-15 Outpatient ANGELA, [facility] [id number] [facility] 09:39:35 15:06:17 DAVID [facility] 2021-01-08 2021-01-[address] [facility] [id number] [facility] 09:58:39 23:59:00 [facility] 2021-01-08 2021-01-08 Outpatient ANGELA, [facility] BCM [id number] [facility] 09:24:02 13:25:46 DAVID [facility] 2021-01-01 2021-01-[address] [facility] [id number] [facility] 10:08:44 23:59:00 [facility] 2021-01-01 2021-01-01 Outpatient ANGELA, [facility] [id number] [facility] 08:48:31 12:06:38 DAVID [facility] 2020-12-31 2020-12-31 Outpatient EL SLE SLE [id number] SLE 06:56:24 06:56:24 2020-12-26 2020-12-26 Outpatient EL ANGELA, [facility] [id number] [facility] 11:24:41 23:59:00 DAVID 2020-12-14 2020-12-14 Outpatient EL SLEH SLE [id number] SLE 15:06:01 15:06:01 2020-12-03 2020-12-03 Outpatient EL SLE SLE [id number] [facility] 08:41:52 08:41:52 2020-11-27 2020-11-27 Outpatient ANGELA, [facility] BCM [id number] [facility] 09:12:24 11:46:01 DAVID [facility] 2020-11-14 2020-11-14 Outpatient ANGELA, [facility] [id number] [facility] 15:18:32 16:17:09 DAVID [facility] Results Test Description Test Time Test Comments Results Result Sour e Comments TISSUE EXAM 2021-02-26 Surgical Pathology Report 11:48:47 Case: [id number] Authorizing Provider: David Miller, Collected: 02/18/2021 09:39 AM Ordering Location: [facility] PERIOPERATIVE Received: 02/18/2021 11:49 AM SERVICES Pathologist: Edgar Vera MD Specimens: A) - Cervix, cervix stitch @ 12 oclock B) - Soft Tissue, Other, uterus, fallopian tubes and ovaries, stitch at 12 oclock A. CERVIX, EXCISION: - CERVICAL STROMAL INVOLVEMENT BY ENDOMETRIOID CARCINOMA - TUMOR PRESENT AT PARACERVICAL MARGIN AT 12-3 O'CLOCK - ALL OTHER MARGINS NEGATIVE FOR CARCINOMAB. UTERUS, FALLOPIAN TUBES AND OVARIES, HYSTERECTOMY AND BILATERALSALPINGO-OOPHORE CTOMY: UTERUS - ENDOMETRIAL ENDOMETRIOID CARCINOMA, FIGO GRADE 1, WITH EXTENSIVE SQUAMOUS DIFFERENTIATION - TUMOR SIZE: 3.2 CM IN GREATEST DIMENSION - DEPTH OF MYOMETRIAL INVASION: 15 MM / 18 MM (> 50%) - LOWER UTERINE SEGMENT INVOLVED BY TUMOR - EXTENSIVE LYMPHOVASCULAR INVASION IDENTIFIED - UNREMARKABLE UTERINE SEROSA FALLOPIAN TUBES AND OVARIES - NO TUMOR PRESENT Signing Pathologist Direct Phone Line: [phone] y signed by Edgar Vera MD on 02/26/2021 at 11:48 AMA. The endometrioid carcinoma extensively invades the cervical stroma and extends to involves the left paracervical margin (12-3 o'clock), therefore best staged as at least pT3.Immunohistochemical stains for mismatch repair genes is as follows: MLH1 - Intact nuclear expressionMSH2 - Intact nuclear expressionMSH6 - Intact nuclear expressionPMS2 - Intact nuclear expressionBackground nonneoplastic tissue/internal control with intact nuclear expression IHC InterpretationNo loss of nuclear expression of MMR proteins: low probability of microsatellite instability-high (MSI-H)There are exceptions to the above IHC interpretations. These results should not be considered in isolation, and clinical correlation with genetic counseling is recommended to assess the need for germline testing.ENDOMETRIUMENDOME TRIUM: HYSTERECTOMY - All [id number] Edition - Protocol posted: 04/27/2019SPECIMEN Procedure: Total hysterectomy and bilateral salpingo-oophorectomy TUMOR Tumor Site: Endometrium Tumor Site: Lower uterine segment Histologic Type: Endometrioid carcinoma with squamous differentiation Histologic Grade: FIGO grade 1 Tumor Size: Greatest Dimension (Centimeters): 3.2 cm Myometrial Invasion: Present Depth of Myometrial Invasion (Millimeters): 15 mm Myometrial Thickness (Millimeters): 18 mm Percentage of Myometrial Invasion: 83 % Adenomyosis: Not identified Uterine Serosa Involvement: Not identified Lower Uterine Segment Involvement: Present, myoinvasive Cervical Stromal Involvement: Present Other Tissue / Organ Involvement: Not identified Peritoneal Ascitic Fluid: Not submitted / unknown Lymphovascular Invasion: Present MARGINS Margins: Ectocervical / Vaginal Cuff Margin: Uninvolved by carcinoma Distance of Invasive Carcinoma from Margin (Millimeters): 8 mm Margins: Parametrial / Paracervical Margin: Involved by carcinoma LYMPH NODES Regional Lymph Nodes: No lymph nodes submitted or found PATHOLOGIC STAGE CLASSIFICATION (pTNM, AJCC 8th Edition) TNM Descriptors: y (post-treatment) Primary Tumor (pT): pT3 Regional Lymph Nodes (pN): pNX A. 83796; 42029; 32482 x3B. 66071Hafzliwse neoplasm of uterus, history of radiation exposureA. CervixB. Uterus, fallopian tubes and ovariesA. Received fresh labeled with the patient's name, medical record number and "cervix" is a 3.9 x 2.8 cm tanpink, rubbery conical tissue excised to a depth of 2.7 cm with a stitch designating 12:00. A 1.1 x 0.4 cm slitlike cervical os is identified. The ectocervical mucosa is tanpink, focally hemorrhagic, smooth and glistening. The specimen is serially sectioned in a clockwise/radial fashion to reveal bright yellow, roughened surfaces consistent with necrosis within the endocervical canal 0.4 cm from the deep margin, 0.9 cm from the outer cervix, and 0.3 cm from the ectocervix. Grinder Lap sections are submitted.Ink code:Blue: Ectocervical marginBlack: Outer cervixViolet: Deep/endocervical edgeRed: 12:00Green: 3:00 Section code:A1: 12-3 o'xleksC4F6: 3-6 o'clockA4: 6-9 o'clockA5: 9-12 o'clockCarlota Bradyer initial microscopic evaluation, the remainder of the specimen is submitted as follows:Section code:A6A9: 12-3 o'clockA 10A 13: 3-6 o'clockA 14A 17: 6-9 o'clockA 18A 20: 9-12 o'clockMIGUEL Brady. Received fresh labeled with the patient's name, medical record number and "soft tissue, other" is a 176 g, 8.6 cm (superior to inferior) x 7.5 cm (cornu to cornu) x 4.8 cm (anterior to posterior) uterus with attached bilateral previously ligated and fimbriated fallopian tubes (left: 6.2 cm in length, ranging 0.3 to 0.5 cm in diameter; right: 6.2 cm in length, ranging 0.4 to 0.6 cm in diameter), bilateral ovaries (left: 7.5 g, 3.2 x 2.0 x 1.5 cm; right: 4.7 g, 2.8 x 1.8 x 1.1 cm) and without an attached cervix. There is a stitch designating 12:00.The uterine serosa is horn-pink and glistening. The specimen is bivalved and serially sectioned to reveal a triangular endometrial cavity measuring 3.3 cm (superior to inferior) x 2.7 cm (cornu to cornu) completely encompassed by a 3.2 x 2.5 cm tanpink, friable, well-circumscribed mass involving and obliterating the endometrium. The myometrium is tanpink, firm, trabeculated measuring up to 2.7 cm in thickness. The mass has a depth of 0.5 cm and is 2.1 cm from the serosa.The bilateral fallopian tubes are lavenderpink, smooth and glistening with multiple paratubal cysts ranging from 0.1 to 0.6 cm in greatest dimension located at the body and fimbriated end filled with horn, serous fluid. Both tubes are serially sectioned to reveal a pinpoint to stellate lumens.The bilateral ovaries are lavender to horn-pink, smooth and glistening. The left ovary is serially sectioned to reveal a 60% cystic, 40% solid cut surface extruding horn translucent serous fluid. The remaining cut surfaces are tanpink to white and heterogeneous. The right ovary is serially sectioned to reveal an 80% solid, 20% cystic cut surface extruding horn translucent serous fluid. The remaining cut surfaces are tanpink and homogenous.No other masses or lesions identified. Gross photographs are taken. Grinder Lap sections are submitted.Ink code:Blue: AnteriorBlack: PosteriorViolet: Cervix amputation siteSection code:B1B4: Anterior uterine wall sequentially submitted from lower uterine segment to fundus (12:00 stitch section)B5B8: Anterior uterine wall sequentially submitted from lower uterine segment to [id number]: Posterior uterine wall sequentially submitted from lower uterine segment to fundusB 13B 16: Posterior uterine wall sequentially submitted from lower uterine segment to fundusB-17B19: Left fallopian tube (entire fimbriae in B-17B 18)B 20B 21: Left ovaryB 22B 24: Right fallopian tube (entire fimbriae in B 22B 23)B 25B 26: Right ovary Anca Bradyformed.Block A7: has adequate tumor cellularity for ancillary studies The interpretation of this case included the use of immunohistochemistry or special stains.Control Slides Examined: In-house known positive controls were evaluated along with the test tissue. These control slides run alongside of the patients sample show appropriate staining. Internal positive and negative controls when available are evaluated Immunohistochemistry technical testing was performed at [facility], Pathology Laboratory where it was developed and its performance characteristics were determined. It has not been cleared or approved by the U.S. Food and Drug Administration. The FDA has determined that such clearance or approval is not necessary. The test is used for clinical purposes. It should not be regarded as investigational or for research. This laboratory is certified under the Clinical Laboratory Improvement Amendments of 1988 (CLIA-88) as qualified to perform high complexity clinical laboratory testing. POCT-GLUCOSE METER 2021-02-18 11:14:41 Test Item Value Reference Range Interpretation Comme nts POC-GLUCOSE METER (BEAKER) 297 mg/dL 70-110 H : TESTED AT [facility] [address] (test code = 1538) ERICKA Brady, [address]: Press Operator Printing/Techni clair ID = [id number] for ZAKI JAMA (CELLAVISION MANUAL DIFF)2021-02-18 09:37:26 Test Item Value Reference Range Interpretation Comments NEUTROPHILS - REL 56 % (CELLAVISION)(BEAKER) (test code = 2816) LYMPHOCYTES - REL 23 % (CELLAVISION)(BEAKER) (test code = 2817) MONOCYTES - REL 11 % (CELLAVISION)(BEAKER) (test code = 2818) EOSINOPHILS - REL 3 % (CELLAVISION)(BEAKER) (test code = 2819) BANDS - REL (CELLAVISION)(BEAKER) 5 % 0-10 (test code = 2826) ATYPICAL LYMPHOCYTES - REL 2 % 0-0 H (CELLAVISION)(BEAKER) (test code = 2829) NEUTROPHILS - ABS 1.06 K/ul 1.56-6.13 L (CELLAVISION)(BEAKER) (test code = 2830) LYMPHOCYTES - ABS 0.44 K/ul 1.18-3.74 L (CELLAVISION)(BEAKER) (test code = 2831) MONOCYTES - ABS 0.21 K/uL 0.24-0.36 L (CELLAVISION)(BEAKER) (test code = 2832) EOSINOPHILS - ABS 0.06 K/uL 0.04-0.36 (CELLAVISION)(BEAKER) (test code = 2834) BANDS - ABS (CELLAVISION)(BEAKER) 0.10 K/uL 0.00-0.80 (test code = 2840) ATYPICAL LYMPHOCYTES - ABS 0.04 K/uL 0.00-0.00 H (CELLAVISION)(BEAKER) (test code = 1038) TOTAL COUNTED (BEAKER) (test code 100 = 1351) MANUAL NRBC PER 100 CELLS 1 /100 WBC 0-0 H (BEAKER) (test code = 1353) WBC MORPHOLOGY (BEAKER) (test Normal code = 487) PLT MORPHOLOGY (BEAKER) (test Normal code = 486) POLYCHROMATOPHILLIC RBCS(BEAKER) 2+ moderate (test code = 478) ANISOCYTOSIS (BEAKER) (test code 1+ few = 961) MICROCYTES (BEAKER) (test code = 1+ few 965) POIKILOCYTES (BEAKER) (test code 1+ few = 966) SPHEROCYTES (BEAKER) (test code = 1+ few 768) ARTIFACT (CELLAVISION)(BEAKER) Present (test code = 3432) PLATELET CONCENTRATION Adequate (CELLAVISION)(BEAKER) (test code = 3438) Press Operator Printing ID - Lucita Liang comments: Slide comments:CBC W/PLT COUNT & AUTO [id number] 09:37:11 Test Item Value Reference Range Interpretation Comments WHITE BLOOD CELL COUNT (BEAKER) 1.9 K/ L 3.5-10.5 L (test code = 775) RED BLOOD CELL COUNT (BEAKER) 3.78 M/ L 3.93-5.22 L (test code = 761) HEMOGLOBIN (BEAKER) (test code = 12.3 GM/DL 11.2-15.7 410) HEMATOCRIT (BEAKER) (test code = 35.7 % 34.1-44.9 411) MEAN CORPUSCULAR VOLUME (BEAKER) 94.4 fL 79.4-94.8 (test code = 753) MEAN CORPUSCULAR HEMOGLOBIN 32.5 pg 25.6-32.2 H (BEAKER) (test code = 751) MEAN CORPUSCULAR HEMOGLOBIN CONC 34.5 GM/DL 32.2-35.5 (BEAKER) (test code = 752) RED CELL DISTRIBUTION WIDTH 16.7 % 11.7-14.4 H (BEAKER) (test code = 412) PLATELET COUNT (BEAKER) (test 172 K/CU MM 150-450 code = 756) MEAN PLATELET VOLUME (BEAKER) 9.3 fL 9.4-12.3 L (test code = 754) NUCLEATED RED BLOOD CELLS 1 /100 WBC 0-0 H (BEAKER) (test code = 413) [id number] 07:00:03 Test Item Value Reference Range Interpretation Comments MAGNESIUM (BEAKER) 1.8 mg/dL 1.6-2.6 Specimen markedly (test code = 627) hemolyzed Press Operator Printing ID - BLAS FPOCT-GLUCOSE [id number] 06:47:08 Test Item Value Reference Range Interpretation Comments POC-GLUCOSE METER 233 mg/dL 70-110 H : TESTED A T [facility] [address] (BEAKER) (test code = [place], 1538) [address]: Press Operator Printing/Techni clair ID = [id number] for NIMESH VOSS MR, PELVIS, [id number] 15:21:00Please use vaginal gel . This MRI is needed for for HDR Brachytherapy planning Unlisted Reason for Exam - Click Yes and Enter Reason Below->No [facility] 1970 Sex: FFINAL REPORT TECHNIQUE: MRI of the pelvis WITHOUT and WITH intravenous contrast. This was performed on a 1 T MRI for radiation treatment planning. INDICATION: 50-year-old lady with history of stage IIIB endometrioid endometrial cancer currently undergoing radiation (started on 12/27/2020) and cisplatin. COMPARISON: FDG PET/CT dated 11/26/2020. Outside pelvic MRI dated 11/26/2020.. FINDINGS: Motion artifact on postcontrast imaging does make evaluation suboptimal. UTERUS, ENDOMETRIUM, AND CERVIX: The uterus measures 11 x 6.4 x 7.3 cm. There is heterogeneous endometriumthickening up to 1.3 cm in diameter, previously 2.9 cm. This mass invades the cervix with the cervical portion measuring approximately 3.2 x 2.4 x 4.2 cm, previously 5.8 x 5.2 x 6.3 cm. There is persistent extension into the postprocedure, right greater than left. However, there is restricted diffusion is no longer in the parametrial soft tissues. There is questionable signal abnormality in the superior portion of the vagina as best seen on series 1301 image 26. The material in the endometrium whichis hyperintense on T1-weighted imaging is most consistent with blood. OVARIES/ADNEXA: Cysts in the left ovary appears simple and measure up to 1.3 cm. These are almost or benign, and no routine follow-up imaging is recommended for this finding. The right ovary has some intermediate signal on T2-weighted imaging which has decreased compared to the prior examination. On the prior PET/CT, there was no abnormal FDG uptake in this region, and this may be normal ovarian tissue. PERITONEUM/RETROPERITONEUM:No free fluid. BLADDER: Unremarkable.GI TRACT: Unremarkable. LYMPH NODES: No new lymphadenopathy. BONES AND SOFT TISSUES: Unremarkable. IMPRESSION: 1.The mass which involves the cervix and endometriumaxial images of the right parametrium has decreased in size. There is some abnormal T2-weighted signal which still extends into both parametria. However, there is no definite restricted diffusion in the parametria, and this tumor may not be viable (however, this is unreliable given that this is a 1 T MRI). 2.There is questionable irregularity of the superior vagina which is indeterminate but could bedue to invasion of the tumor into the vagina. Direct visualization is recommended. 3.No definite metastatic disease in the pelvis. 4.The slight prominence of intermediate T2 signal in the right ovary is indeterminate. However, this is unlikely to be related to the pelvic malignancy since no definite restricted diffusion was seen in this region on the prior PET/CT. Signed: Eric Bedolla MDReport VerifiedDate/Time: 02/01/2021 15:21:55 Reading Location: [address] Transitional Reading Room Electro nically signed by: ERIC BEDOLLA MD on 02/01/2021 03:21 PMURINALYSIS W/ [id number] 13:44:46 Test Item Value Reference Range Interpretation Comments COLOR (BEAKER) (test code = 470) Colorless CLARITY (BEAKER) (test code = Clear 469) SPECIFIC GRAVITY UA (BEAKER) 1.016 1.001-1.035 (test code = 468) PH UA (BEAKER) (test code = 467) 5.5 5.0-8.0 PROTEIN UA (BEAKER) (test code = Negative Negative 464) GLUCOSE UA (BEAKER) (test code = >1000 mg/dL Negative A 365) KETONES UA (BEAKER) (test code = Negative Negative 371) BILIRUBIN UA (BEAKER) (test code Negative Negative = 462) BLOOD UA (BEAKER) (test code = Negative Negative 461) NITRITE UA (BEAKER) (test code = Negative Negative 465) LEUKOCYTE ESTERASE UA (BEAKER) Large Negative A (test code = 466) UROBILINOGEN UA (BEAKER) (test 0.2 mg/dL 0.2-1.0 code = 463) RBC UA (BEAKER) (test code = 519) 2 /HPF WBC UA (BEAKER) (test code = 520) 27 /HPF BACTERIA (BEAKER) (test code = Occasional 517) MUCUS (BEAKER) (test code = 1574) Occasional SQUAMOUS EPITHELIAL (BEAKER) < /HPF (test code = 516) CRYSTALS, URINE (BEAKER) (test None Seen code = 1521) SOURCE(BEAKER) (test code = 2795) Press Operator Printing ID - [auto]Press Operator Printing ID - techPET/CT, SKULL BASE TO MID-THIGH PI 2020-12-31 06:33:00Unlisted Reason for Exam - Click Yes and Enter Reason Below- >YesUnlisted Reason for Exam->Malignant neoplasm of endometrium [facility] 1970 Sex: FFINAL REPORT PROCEDURE: FDG PET/CT for Oncology CPT CODE: 19737 TUMOR TYPE: Endometrial cancerHISTORY: 49-year-old female with endometrial cancer. INDICATION: FDG PET/CT was obtained to assess extent of disease prior to initial management PROTOCOL: 11.1 mCi of F-18 fluorodeoxyglucose (FDG) was injected intravenously via the right hand. Serum glucose was 196 mg/dL prior to injection. Images were begun 63 minutes after injection and included the skull base to the proximal thighs. Limited low-dose CT images were also obtained for attenuation correction and anatomic correlation of PET scan abnormalities. Radiographic contrast was not administered. FINDINGS: Head and Neck: No abnormal FDG activity within the visualized brain, orbits, paranasal sinuses, pharyngeal soft tissues, and thyroid gland. No FDG-avid cervical lymph nodes. Chest: No FDG-avid pulmonary nodules or airspace opacities. No FDG-avid mediastinal, hilar, or axillary lymph nodes. Abdomen/Pelvis: No abnormal FDG activity within the liver, gallbladder, spleen, pancreas, kidneys, adrenals, and bowel. No FDG-avid mesenteric or retroperitoneal lymph nodes. Ill-defined FDG activity throughout the endometrial cavity with SUV raging from 10.0 at the cervix to 7.2 in the body of the uterus. There is a small area of moderate activity at the right periuterine neck but otherwise, no abnormal FDG activity within the pelvis. No FDG-avid pelvic or inguinal lymph nodes. Musculoskeletal: No FDG-avid skeletal lesions. Degenerative changes throughout the spine. IMPRESSION:1.Ill-defined FDG activity throughout the endometrial cavity, consistent with known malignancy.2.Suspicion of right parametrial extension but no other evidence of local or distant metastatic disease and no involved lymphadenopathy. Signed: Guerrero Briggs [facility] Verified Date/Time: 12/31/2020 06:33:01 Reading Location: [address] P[address] Reading Room POCT-GLUCOSE [id number] 12:04:16 Test Item Value Reference Range Interpretation Comments POC-GLUCOSE METER 196 mg/dL 70-110 H : TESTED A T [facility] [address] (SONALI) (test code = [place], 1538) [id number]: Press Operator Printing/Techni clair ID = [id number] for Norma Ramsay
[2021-07-02] MEDS ORDERED: MORPHINE 2 MG/ML SYR ONE (10:27)
[2021-07-02] MEDS ORDERED: ONDANSETRON 4 MG (ODT) TAB ONE (10:28)
--- NOTE | 2021-07-02 12:13 | RAD REPORT ---
EXAM DESCRIPTION: RAD - Ankle Right 3 View - 07/02/2021 12:01 pm CLINICAL HISTORY: PAIN COMPARISON: No comparisons FINDINGS: Moderate plantar calcaneal spur is seen. Elsewhere, no bone or joint abnormality.
--- NOTE | 2021-07-02 12:15 | RAD REPORT ---
EXAM DESCRIPTION: RAD - Wrist Right 3 View - 07/02/2021 12:00 pm CLINICAL HISTORY: PAIN Pain COMPARISON: 3D DIAG UNI F/U dated 10/10/2020; 3D SCR LESTER BILAT W/CAD dated 09/26/2020 FINDINGS: No fracture or dislocation seen. No foreign body or other soft tissue abnormality. IMPRESSION: Negative examination.
--- NOTE | 2021-07-02 12:31 | RAD REPORT ---
EXAM DESCRIPTION: RAD - Tib Fib Right - 07/02/2021 12:00 pm CLINICAL HISTORY: PAIN COMPARISON: No comparisons FINDINGS: No fracture or dislocation.
--- NOTE | 2021-07-02 12:49 | ER ---
Nurse's Notes [facility] Name: Liliaen Jane Age: 50 yrs Sex: Female : 1970 Arrival Date: 07/02/2021 Time: 09:53 Bed 10 Private MD: Juan Franz Diagnosis: Sprain of ankle;Other specified sprain of right wrist;Contusion of right lower leg Presentation: 07/02 10:02 Chief complaint: Patient states: Weak from chemo. Fell on Thursday with weakness. RLE ll1 pain and R wrist pain since. Can ambulate on it. Coronavirus screen: Vaccine status: Patient reports receiving the 2nd dose of the covid vaccine. Client denies travel out of the [place] in the last 14 days. At this time, the client does not indicate any symptoms associated with coronavirus-19. Ebola Screen: Patient denies travel to an Ebola-affected area in the 21 days before illness onset. Initial Sepsis Screen: Does the patient meet any 2 criteria? No. Patient's initial sepsis screen is negative. Does the patient have a suspected source of infection? No. Patient's initial sepsis screen is negative. Risk Assessment: Do you want to hurt yourself or someone else? Patient reports no desire to harm self or others. Onset of symptoms was June 29, 2021. 10:02 Method Of Arrival: Wheelchair ll1 10:02 Acuity: KENNEDY 3 ll1 Triage Assessment: 10:05 General: Appears uncomfortable, Behavior is cooperative, appropriate for age. Pain: ll1 Complains of pain in right leg Quality of pain is described as aching. Musculoskeletal: Reports pain in right arm and R ankle. Injury Description: Bruise. Historical: - Allergies: 10:04 HYDROCODONE; ll1 - PMHx: 10:04 Depression; Diabetes - NIDDM; High Cholesterol; Hypertension; Anxiety; uterine CA; ll1 - PSHx: 10:04 hysterectomy; ll1 - Immunization history:: Client reports receiving the 2nd dose of the Covid vaccine. - Social history:: Smoking status: Patient denies any tobacco usage or history of. Screenin:19 Abuse screen: Denies threats or abuse. Denies injuries from another. Nutritional ld1 screening: No deficits noted. Tuberculosis screening: No symptoms or risk factors identified. Fall Risk None identified. Primary Survey: 13:16 NO uncontrolled hemorrhage observed. Breathing/Chest: Spontaneous respiratory effort, ld1 equal unlabored respirations, breath sounds clear bilaterally, regular pattern, symmetrical chest rise and fall. Circulation: No external hemorrhage present. Regular and strong central pulse, skin warm/dry/normal color. Disability Client is alert. Exposure/Environment: There is no evidence of uncontrolled external bleeding. Reassessment Breathing: Spontaneous respiratory effort, equal unlabored respirations, breath sounds clear bilaterally, regular pattern with symmetrical chest rise and fall. Circulation: No external hemorrhage noted. Regular and strong central pulse, skin warm/dry/normal color. Disability: Alert. Assessment: 12:19 General: Appears in no apparent distress. comfortable, Behavior is calm, cooperative, ld1 appropriate for age. Pain: Complains of pain in right leg Pain does not radiate. Pain currently is 4 out of 10 on a pain scale. Quality of pain is described as sharp. Neuro: Level of Consciousness is awake, alert, obeys commands, Oriented to person, place, time, situation. Cardiovascular: Capillary refill < 3 seconds Patient's skin is warm and dry. Respiratory: Airway is patent Respiratory effort is even, unlabored. GI: Abdomen is round non-distended. : No signs and/or symptoms were reported regarding the genitourinary system. EENT: No signs and/or symptoms were reported regarding the EENT system. Derm: No signs and/or symptoms reported regarding the dermatologic system. Musculoskeletal: Reports pain in right leg. Vital Signs: 10:02 BP 127 / 84; Pulse 88; Resp 16; Temp 97.0; Pulse Ox 98% ; Weight 72.57 kg; Height 5 ft. ll1 4 in. (162.56 cm); Pain 9/10; 12:19 BP 132 / 88; Pulse 84; Resp 18; Pulse Ox 99% on R/A; Pain 4/10; ld1 10:02 Body Mass Index 27.46 (72.57 kg, 162.56 cm) ll1 Trauma Score (Adult): 13:17 Eye Response: spontaneous(1); Verbal Response: oriented(1); Motor Response: obeys ld1 commands(2); Systolic BP: > 89 mm Hg(4); Respiratory Rate: 10 to 29 per min(4); [place] Score: 15; Trauma Score: 12 ED Course: 09:53 Patient arrived in ED. mr 09:53 Juan Franz MD is Private Physician. mr 10:04 Triage completed. ll1 10:05 Arm band placed on. ll1 10:13 Fernando Nieto NP is PHCP. pm1 10:13 Rodrigo Fernandez MD is Attending Physician. pm1 11:59 Wrist Right 3 View XRAY In Process Unspecified. EDMS 11:59 Ankle Right 3 View XRAY In Process Unspecified. EDMS 11:59 Tib Fib Right XRAY In Process Unspecified. EDMS 12:19 Lashawn Izquierdo, RN is Primary Nurse. ld1 12:19 Patient has correct armband on for positive identification. Placed in gown. Bed in low ld1 position. Call light in reach. Side rails up X2. Pulse ox on. NIBP on. Door closed. Noise minimized. Warm blanket given. 12:19 No provider procedures requiring assistance completed. ld1 13:17 Patient did not have IV access during this emergency room visit. ld1 Administered Medications: 10:28 Drug: morphine 2 mg Route: IM; Site: right vastus lateralis; ll1 10:28 Drug: Zofran (Ondansetron) 4 mg Route: PO; ll1 Outcome: 12:49 Discharge ordered by MD. pm1 13:17 Discharged to home ambulatory, with family. ld1 13:17 Condition: stable 13:17 Discharge instructions given to patient, family, Instructed on discharge instructions, follow up and referral plans. Demonstrated understanding of instructions, follow-up care. 13:20 Patient left the ED. ld1 Signatures: Dispatcher [employer] EDNC SebastianKathy oneill mr Fernando Nieto NP [employer] NEUTRAL[employer]ER pm1 Renaldo Monk RN RN ll1 Lashawn Izquierdo, JUAN MIGUEL RN ld1 Corrections: (The following items were deleted from the chart) 10:05 10:04 PMHx: uterina CA; ll1 ll1
--- NOTE | 2021-07-02 12:49 | EDPHYS ---
Physician Documentation [facility] Name: Liliane Jane Age: 50 yrs Sex: Female : 1970 Arrival Date: 07/02/2021 Time: 09:53 Bed 10 Private MD: Juan Franz ED Physician Rodrigo Fernandez HPI: 07/02 10:23 This 50 yrs old Female presents to ER via Wheelchair with complaints of Fall pm1 Injury, Leg Pain. 10:23 Details of fall: The patient fell from an upright position, while walking, and struck pm1 wooden porch. Onset: The symptoms/episode began/occurred 3 day(s) ago. Associated injuries: The patient sustained right li, contusion, right ankle, pain, right wrist, swelling, pain. Severity of symptoms: in the emergency department the symptoms are unchanged. The patient has not experienced similar symptoms in the past. The patient has not recently seen a physician. Patient fell while walking out her front door onto the porch. Patient complaining of contusion to right upper li, right ankle pain, and right wrist pain. No head injury, no headache, no neck pain, negative LOC. Historical: - Allergies: 10:04 HYDROCODONE; ll1 - PMHx: 10:04 Depression; Diabetes - NIDDM; High Cholesterol; Hypertension; Anxiety; uterine CA; ll1 - PSHx: 10:04 hysterectomy; ll1 - Immunization history:: Client reports receiving the 2nd dose of the Covid vaccine. - Social history:: Smoking status: Patient denies any tobacco usage or history of. ROS: 10:23 Constitutional: Negative for fever, chills, and weight loss, Cardiovascular: Negative pm1 for chest pain, palpitations, and edema, Respiratory: Negative for shortness of breath, cough, wheezing, and pleuritic chest pain, Abdomen/GI: Negative for abdominal pain, nausea, vomiting, diarrhea, and constipation. 10:23 Skin: Negative for injury, rash, and discoloration, Neuro: Negative for headache, weakness, numbness, tingling, and seizure. 10:23 MS/extremity: Positive for Pain to right wrist, right li, right ankle, Negative for decreased range of motion, deformity. 10:23 All other systems are negative. Exam: 10:23 Constitutional: This is a well developed, well nourished patient who is awake, alert, pm1 and in no acute distress. Head/Face: Normocephalic, atraumatic. 10:23 Skin: Warm, dry with normal turgor. Normal color with no rashes, no lesions, and no evidence of cellulitis. 10:23 Eyes: Exam is negative for acute changes, Periorbital structures: appear normal, Extraocular movements: no acute changes, Conjunctiva: no acute changes, no injection. 10:23 ENT: Exam is negative for acute changes, Mouth: no acute changes, Lips: normal, moist, Oral mucosa: normal, pink and intact, moist. 10:23 Musculoskeletal/extremity: Extremities: No swelling or tenderness present to right ankle. Mild tenderness present to proximal aspect of right li. Mild swelling present to right wrist, ROM: intact in all extremities, full active range of motion, in all extremities, full passive range of motion, in all extremities, Sensation intact. 10:23 Neuro: Exam negative for acute changes, Orientation: is normal, Mentation: is normal, Motor: is normal, moves all fours. Vital Signs: 10:02 BP 127 / 84; Pulse 88; Resp 16; Temp 97.0; Pulse Ox 98% ; Weight 72.57 kg; Height 5 ft. ll1 4 in. (162.56 cm); Pain 9/10; 12:19 BP 132 / 88; Pulse 84; Resp 18; Pulse Ox 99% on R/A; Pain 4/10; ld1 10:02 Body Mass Index 27.46 (72.57 kg, 162.56 cm) ll1 Trauma Score (Adult): 13:17 Eye Response: spontaneous(1); Verbal Response: oriented(1); Motor Response: obeys ld1 commands(2); Systolic BP: > 89 mm Hg(4); Respiratory Rate: 10 to 29 per min(4); [place] Score: 15; Trauma Score: 12 MDM: 11:23 Patient medically screened. pm1 12:47 Data reviewed: vital signs. Data interpreted: Pulse oximetry: on room air is 99 %. pm1 Interpretation: normal. Counseling: I had a detailed discussion with the patient and/or guardian regarding: the historical points, exam findings, and any diagnostic results supporting the discharge/admit diagnosis, radiology results, the need for outpatient follow up, to return to the emergency department if symptoms worsen or persist or if there are any questions or concerns that arise at home. 07/02 10:23 Order name: Wrist Right 3 View XRAY; Complete Time: 12:23 pm1 07/02 10:23 Order name: Ankle Right 3 View XRAY; Complete Time: 12:14 pm1 07/02 10:23 Order name: Tib Fib Right XRAY; Complete Time: 12:47 pm1 07/02 12:57 Order name: Wrist Splint; Complete Time: 13:16 pm1 07/02 12:57 Order name: Vineet Wrap; Complete Time: 13:16 pm1 Administered Medications: 10:28 Drug: morphine 2 mg Route: IM; Site: right vastus lateralis; ll1 10:28 Drug: Zofran (Ondansetron) 4 mg Route: PO; ll1 Disposition: 14:51 Co-signature as Attending Physician, Rodrigo Fernandez MD. rn Disposition Summary: 07/02/21 12:49 Discharge Ordered Location: Home pm1 Problem: new pm1 Symptoms: have improved pm1 Condition: Stable pm1 Diagnosis - Sprain of ankle pm1 - Other specified sprain of right wrist pm1 - Contusion of right lower leg pm1 Followup: pm1 - With: Emergency Department - When: As needed - Reason: Worsening of condition Followup: pm1 - With: Private Physician - When: 2 - 3 days - Reason: Recheck today's complaints, Continuance of care, Re-evaluation by your physician Discharge Instructions: - Discharge Summary Sheet pm1 - Ankle Sprain pm1 - Contusion pm1 - Wrist Sprain, Adult pm1 Forms: - Medication Reconciliation Form pm1 - Thank You Letter pm1 - Antibiotic Education pm1 - Prescription Opioid Use pm1 Signatures: Dispatcher [employer] EDRodrigo Medley MD MD rn Marinas, Patrick, [employer] INTER[employer] pm1 Renaldo Monk RN RN ll1 Corrections: (The following items were deleted from the chart) 10:05 10:04 PMHx: uterina CA; ll1 ll1
[2021-07-02 13:51] VITALS: TEMP 97
[2021-07-02 13:53] VITALS: BP 132/88; O2SAT 99
== END 2021-07-02 13:20 | disposition home or self-care (01) ==
LOC: ER 09:51
DX: S63.591A Other specified sprain of right wrist, initial encounter (principal); S93.401A Sprain of unspecified ligament of right ankle, initial encounter; S80.11XA Contusion of right lower leg, initial encounter; W18.30XA Fall on same level, unspecified, initial encounter; Y93.01 Activity, walking, marching and hiking; E11.9 Type 2 diabetes mellitus without complications; I10 Essential (primary) hypertension; Z88.5 Allergy status to narcotic agent
CPT/HCPCS: 73110; 73590; 73610; 96372; 99283; J2270